=== PATIENT | female | born 1960 | race Caucasian/White ===

== ENCOUNTER 2021-04-14 09:31 | Day surgery (SDC) | payer BC, SELFPAY ==
--- NOTE | 2021-03-30 13:35 | PCM.HP.BLA ---
History and Physical Date of Admission: 04/14/21 HPI: The patient is a 61 year old female presenting for pre-operative visit. She is scheduled for Hysteroscopy D&C with polypectomy, for endometrial polyp and PMB on 04/14/21. Procedure discussed along with risks, benefits and complications. Other alternatives discussed for management. Consent form signed? Yes. ? ? PAST MEDICAL HISTORY PAST MEDICAL HISTORY Diagnosis Date ? 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 Epilepsy (HCC) ? ? Osteoporosis ? ? ? PAST SURGICAL HISTORY PAST SURGICAL HISTORY Procedure Laterality Date ? ENDOSCOPY SMALL INTESTINE BEYOND ND PORTION DUODENUM NO ILEUM W/ REMOVE TUMOR VIA CAUTERY ? 1976 ? removed malignant tumor from intestine ? REMOVE TONSILS/ADENOIDS,<12 Y/O ? CURRENT MEDICATIONS Current Outpatient Medications Medication Sig Dispense Refill ? phenytoin ER (DILANTIN) 100 mg ER capsule ? denosumab (PROLIA) 60 mg/mL 60 mg. ? ? ? cholecalciferol, vitamin D3, (VITAMIN D3 ORAL) Take by mouth. ? ? ? No current facility-administered medications for this visit. ? ? ALLERGIES: Patient has no known allergies. ? PERSONAL HISTORY: SOCIAL HISTORY Social History ? Tobacco Use ? Smoking status: Never Smoker ? Smokeless tobacco: Never Used Vaping Use ? Vaping Use: Never used Substance Use Topics ? Alcohol use: Not Currently ? Drug use: Never ? FAMILY HISTORY: FAMILY HISTORY FAMILY HISTORY Problem Relation Age of Onset ? Breast Cancer Mother ? ? Lymphoma Father ? ? passed at age 57 ? ? REVIEW OF SYMPTOMS: GENERAL: denies fevers or chills ENDOCRINOLOGY: has not been on steroids Cardiology : denies palpitations or chest pain Respiratory: denies SOB or cough Hematology: denies history of prolonged bleeding or easy bruising or VTE Allergy: Denies history of personal or family history of allergy to anesthesia ? ? PHYSICAL EXAMINATION: ? VITALS: There were no vitals taken for this visit. ? GENERAL: The patient is well nourished, well hydrated in no acute distress. , The patient is oriented to time, place, and person. NECK: Supple. No lynphadenopathy, normal thyroid, no thyromegaly. LUNGS: Clear to auscultation bilaterally. no wheezes, rhonchi or rales HEART: Regular rate and rhythm, Normal heart sounds and No murmurs or gallops ? IMPRESSION: PMB, endometrial polyp ? PLAN: The risks/benefits/alternatives and personal involved for the planned hysteroscopy D&C w/ polyp resection were reviewed with the patient. Her questions were answered to her satisfaction and she desires to proceed. Consent was signed. I reviewed with her postop instructions and expectations. ? ? I have reviewed and updated past medical and surgical history, medications and allergies This H&P was completed in my office on 03/29/22 Assessment & Plan Assessment/Plan (1) Endometrial polyp: Status: Acute Code(s): N84.0 - Polyp of corpus uteri Plan: Plan as outlined in above portion of H&P. (2) PMB (postmenopausal bleeding): Status: Acute Code(s): N95.0 - Postmenopausal bleeding
[2021-04-13 10:09] LABS: Hematocrit 39.6 % (37-47); Hemoglobin 13.5 g/dL (12.0-15.0); Mean Corp Hgb Conc 34.1 g/dL (32-36); Mean Corpuscular Volume 93.8 fL (81-99); Mean Platelet Vol. 9.7 fl (6.2-12.0); Platelet Count 200 K/mm3 (150-450); RBC Distribution Width SD 44.6 fl (35.1-43.9); Red Blood Count 4.22 M/mm3 (4.2-5.4); White Blood Count 4.9 K/mm3 (4.4-11.0)
[2021-04-13 10:44] LABS: Anion Gap 5 (5-15); BUN 24 mg/dL (7-18); BUN/Creat Ratio 33.5 RATIO (10-20); Calcium,Total 8.8 mg/dL (8.5-10.1); Chloride 105 mmol/L (98-107); Creatinine, Serum 0.72 mg/dL (0.55-1.02); EST Glomerular Filtration Rate 88 mL/min (>60); Est Glom Filt Rate - Afr Amer 107 mL/min (>60); Glucose 89 mg/dL (74-106); Potassium 3.8 mmol/L (3.5-5.1); Sodium Level 140 mmol/L (136-145)
[2021-04-14] VITALS (7 sets, daily range): BP systolic 105–144; BP diastolic 56–74; PULSE 58–63; RESP 16–18; TEMP 36.1–36.4; O2SAT 97–100; BMI 25.1
[2021-04-14] MEDS: Acetaminophen 500 MG Tablet 1000 MG PO (07:00)
[2021-04-14] MEDS: Celecoxib 200 MG Capsule PO (07:00)
[2021-04-14] MEDS: Lactated Ringers 1,000 ML 100 ML IV (10:15)
--- NOTE | 2021-04-14 10:46 | PCM.DC ---
Discharge Instructions Diet Discharge Diet: No restrictions Activity Discharge Activity: May Shower and May Take a Tub Bath (or swim in 2 weeks) May resume sexual activity in: 2 weeks Lifting Restrictions: none Dressing / Incision Call your doctor if your incision/area has: Sudden Increased Bleeding and Foul Smelling Discharge Call your doctor if you observe: Fever of 101 or Higher and Using more than one pad per hour (for 2 hrs in a row) Follow Up Care Please Follow Up With: Cary Harper MD When: 2-4 weeks or as needed. Call [phone] to make an appointment or with any concerns. Test Results: Test results from this visit will be discussed in further detail at your follow-up appointment, if applicable. Discharge Plan Admission Primary Reason for Your Visit: Dilation and curettage Attending Provider: Cary Harper Primary Care Provider: Shannan Greenberg Discharge Orders/Prescriptions Prescriptions: Continued multivitamin Tablet 1 tab PO DAILY RF: 0 phenytoin sodium extended 100 mg capsule 300 mg PO QHS RF: 0 cholecalciferol (vitamin D3) [Vitamin D3] 25 mcg (1,000 unit) Tablet,Chewable 75 mcg PO DAILY RF: 0 Referrals / Follow Up: Shannan Greenberg, [Primary Care Provider] - Disposition Disposition (needs filled in before D/C Order can be placed): Home, self care
[2021-04-14] MEDS: Lidocaine 1% /Epi 1:100 (20ml) 20 ML Vial (10:55)
--- NOTE | 2021-04-14 10:55 | EMB_PTH ---
PATIENT: BASIM WYATT [place] [facility] [id number] AGE/SX: 61/F ROOM: RE04/14/[address]: Dr. Cary Harper MD : 1960 BED: DIS: 04/14/2021 SPEC #: [id number] RECD: 04/14/21 11:22 STATUS: [facility] REQ #: [id number] CARLEEN: 04/14/21 10:[address]: Cary Harper DEPT: SURGICAL PATHOLOGY RECD BY: Christy Simon ENTERED: 04/14/21 12:58 SP TYPE: ENDOM BX/C OTHR DR: Dr. Shannan Greenberg, DO Tissues: Endometrium, NOS Procedures: Surgery Specimen Level IV HEADER OPERATION: Hysteroscopy, D & C Symphion, polyp resection PRE-OP DIAGNOSIS: Endometrial polyp; postmenopausal bleeding TISSUE SUBMITTED: Endometrial curettings, polyp MICROSCOPIC DIAGNOSIS Endometrial curettings, polyp: Simple cystic endometrial hyperplasia without atypia. Fragments of myometrium. ELLEN:hesham 04/15/2021 MICROSCOPIC DESCRIPTION Slides are reviewed. GROSS DESCRIPTION Received in fixative is one container labeled with the patient's name and designated endometrial curettings, polyp. The specimen consists of multiple irregular fragments of finn-pink soft tissue that in aggregate measure 3 x 2.5 x 0.3 cm. The specimen is totally submitted in one cassette. / ELLEN:hesham 04/14/21 TC:5 [facility]: [id number]
--- NOTE | 2021-04-14 11:03 | OP.PCM_ITS ---
Problems Associated Problem List Diagnoses (1) Endometrial polyp: (2) PMB (postmenopausal bleeding): Report of Operation Date of Procedure: 04/14/21 Pre-Operative Diagnosis: PMB, endometrial polyp Post-Operative Diagnosis: same Surgery/Procedure Performed:: Hysteroscopy D&C with polyp resection Surgeon: Cary Harper Type of Anesthesia: MAC/Supplemental/Local Anesthesiologist: Nelson Gray Special Medications: none Specimen's removed: endometrial curettings and polyp Drains: none Estimated Blood Loss (mL): 10 Fluids Replaced: 700 Description of Procedure: The patient was taken to the OR where she was prepped and draped in dorsal lithotomy position. The weighted speculum was placed in the vagina and the anterior lip of the cervix was grasped with a single-tooth tenaculum. A paracervical block was administered with 1% lidocaine with 1- 100,000 epinephrine solution. The cervix was dilated serially with Hegar dilators. The Symphion hysteroscope was placed into the uterine cavity and the above findings were noted. Bilateral tubal ostia were identified. The resection device was inserted and the polyp was resected and a visual D&C was done. The hysteroscope was removed. The instruments were removed from the vagina. The specimen was handed off and sent to pathology. All sponge and needle counts were correct. Vaginal sweep was performed by me. The patient was awakened and taken to the recovery room in stable condition. Calculated hysteroscopic fluid deficit is 450 cc of normal saline Findings: Endometrial cavity: Atrophic endometrium, appeared to be a possible fundal fibroid. 2 small endometrial polyps of the fundus were noted Cervix: Normal Vagina: Normal Grafts/Implants Used: none Procedure Start Time: 10:49 Procedure Stop Time: 10:59 Complications none Admit VTE Documentation VTE Present on Admission: No VTE Mechan Device Prophylaxis: SCD's VTE Pharm Prophylaxis ordered?: No Reason prophylaxis not ordered:: Procedure Not Indicated
== END 2021-04-14 12:05 | disposition home or self-care (01) ==
LOC: SDC 09:32 → AC 09:32
PROVIDERS: Referring Provider Obstetrics & Gynecology; Visit Provider Obstetrics & Gynecology
PROC: 0UB98ZZ Excision of Uterus, Via Natural or Artificial Opening Endoscopic (ICD-10-PCS; CPT 58558; principal; 2021-04-14 10:40)
DX: N84.0 Polyp of corpus uteri (principal); N95.0 Postmenopausal bleeding; Z20.828 Contact with and (suspected) exposure to other viral communicable diseases; G40.909 Epilepsy, unspecified, not intractable, without status epilepticus; M81.0 Age-related osteoporosis without current pathological fracture; G47.30 Sleep apnea, unspecified; K21.9 Gastro-esophageal reflux disease without esophagitis; Z79.899 Other long term (current) drug therapy; Z85.72 Personal history of non-Hodgkin lymphomas
CPT/HCPCS: 58558; 36415; 80048; 85027; 87426; 88305; C9803; J7120

== ENCOUNTER → 2022-12-29 | Outpatient (CLI) | payer BC, SELFPAY ==
--- NOTE | 2022-12-29 14:30 | TOBX_PTH ---
PATIENT: BASIM WYATT LOC: [facility] U#:[id number] AGE/SX: 62/F ROOM: RE12/29/[address]: Dr. Cheko Otero MD : 1960 BED: DIS: 12/29/2022 SPEC #: [id number] RECD: 01/01/23 11:03 STATUS: ADAMS MARTE #: [id number] CARLEEN: 12/29/22 14:[address]: Cheko Otero DEPT: SURGICAL PATHOLOGY RECD BY: Christy Simon ENTERED: 01/01/23 11:03 SP TYPE: TONGUE BX OTHR DR: Dr. Shannan Greenberg, DO Tissues: Tongue, NOS Procedures: Surgery Specimen Level IV HEADER OPERATION: Tongue biopsy PRE-OP DIAGNOSIS: Dorsal tongue lesion TISSUE SUBMITTED: Dorsal tongue lesion MICROSCOPIC DIAGNOSIS Dorsal tongue lesion, biopsy: Squamous papilloma. ELLEN:hesham 01/02/2023 MICROSCOPIC DESCRIPTION Slides are reviewed. GROSS DESCRIPTION Received in fixative is one container labeled with the patient's name and designated dorsal tongue lesion. The specimen consists of a piece of finn mucosal tissue measuring 0.5 x 0.2 x 0.1 cm. The specimen is totally submitted in one cassette. / SJ:hesham 01/01/2023 TC:1 CPT: 57900
== END | disposition home or self-care (01) ==
LOC: LABSPEC 15:01
PROVIDERS: Visit Provider Otolaryngology
DX: K13.70 Unspecified lesions of oral mucosa (principal)
CPT/HCPCS: 88305